=== PATIENT | female | born 1950 | race Caucasian/White ===

== ENCOUNTER 2024-03-11 13:32 | Observation (INO) | payer BC, OTHER ==
[2024-03-11 13:47] VITALS: BMI 20.5
[2024-03-11] MEDS ORDERED: ACETAMINOPHEN INJECTION 100 ML IVPB ONE (14:52)
[2024-03-11] MEDS ORDERED: MAG HYDROX/AL HYDROX/SIMETH 30 ML UNIT-DOSE CUP ONE (14:52)
[2024-03-11] MEDS ORDERED: METOCLOPRAMIDE HCL INJECTION 10 MG/2 ML VIAL ONE (14:52)
[2024-03-11] MEDS ORDERED: MECLIZINE HCL 25 MG TABLET (FP) ONE ×2 (14:52→18:27)
[2024-03-11] MEDS ORDERED: FAMOTIDINE 20 MG/50 ML IVPB 20 MG/50 ML MG IVPB ONE (14:53)
[2024-03-11] MEDS: FAMOTIDINE 20 MG/50 ML IVPB 20 MG/50 ML MG IVPB ONE (15:20)
[2024-03-11 15:21] LABS: BASO % 0.6 % (0-2.0); EOS % 0.1 % (0-4.5); HEMATOCRIT 37.8 % (32.4-45.2); HEMOGLOBIN 12.8 GM/dL (10.7-15.3); LYMPH % 6.9 % (8-40); MCH 31.1 pg (25.7-33.7); MEAN CELL VOLUME 91.3 fl (80-96); MEAN PLT VOLUME 7.4 fl (7.5-11.1); MONO % 3.5 % (3.8-10.2); NEUT % 88.9 % (42.8-82.8); PLATELET COUNT 258 10^3/uL (134-434); RBC 4.13 M/mm3 (3.60-5.2); WHITE BLOOD COUNT 10.6 K/mm3 (4.0-10.0)
[2024-03-11 15:30] LABS: INR 0.99 (0.83-1.09); PROTHROMBIN TIME (PATIENT) 11.2 SEC (9.7-13.0)
[2024-03-11] MEDS: ACETAMINOPHEN 1000 MG/100 ML BAG IVPB ONE (15:30)
[2024-03-11 15:33] LABS: ACTIVATED PTT 29.3 SECONDS (25.2-36.5)
[2024-03-11] MEDS: MECLIZINE HCL 25 MG TABLET (FP) PO ONE (15:40)
[2024-03-11] MEDS: MAG HYDROX/AL HYDROX/SIMETH 30 ML UNIT-DOSE CUP PO ONE (16:09)
[2024-03-11] MEDS: LACTATED RINGERS SOLUTION 1000 ML INFUS.BAG IV ONE (16:11)
[2024-03-11] MEDS: METOCLOPRAMIDE HCL INJECTION 10 MG/2 ML VIAL IVPUSH ONE (16:11)
[2024-03-11 16:46] LABS: CALCIUM 10.1 mg/dL (8.5-10.1)
[2024-03-11 16:47] LABS: ALBUMIN 3.9 g/dl (3.4-5.0); BLOOD UREA NITROGEN 12.8 mg/dL (7-18); MAGNESIUM 2.1 mg/dL (1.8-2.4)
[2024-03-11 16:50] LABS: CREATININE 0.7 mg/dL (0.55-1.3)
[2024-03-11 16:52] LABS: BILIRUBIN,TOTAL 0.5 mg/dL (0.2-1)
[2024-03-11] MEDS ORDERED: MECLIZINE HCL 25 MG TABLET (FP) PO ONE (18:06)
[2024-03-11 18:28] LABS: PH,URINE 5.5 (5.0-8.0); URINE APPEARANCE CLEAR; URINE BILIRUBIN NEGATIVE (NEGATIVE); URINE COLOR YELLOW; URINE GLUCOSE (UA) NEGATIVE (NEGATIVE); URINE KETONE NEGATIVE (NEGATIVE); URINE LEUK ESTERASE NEGATIVE (NEGATIVE); URINE NITRITE NEGATIVE (NEGATIVE); URINE PROTEIN NEGATIVE (NEGATIVE); URINE UROBILINOGEN 0.2 mg/dL (0.2-1.0)
[2024-03-11] MEDS: LORazepam 2 MG/ML SDV VIAL IVPUSH ONE (20:01)
[2024-03-11] MEDS ORDERED: ASPIRIN 81 MG CHEWABLE TABLETS ONE (20:03)
[2024-03-11] MEDS: ASPIRIN 81 MG CHEWABLE TABLETS PO ONE (20:11)
[2024-03-11] MEDS ORDERED: MECLIZINE HCL 25 MG TABLET (FP) PO PRN (21:06)
[2024-03-11] MEDS ORDERED: ATORVASTATIN CA 80 MG TABLET (FP) ONE (21:41)
[2024-03-11 21:42] LABS: POTASSIUM 4.6 mmol/L (3.5-5.1)
[2024-03-11 21:45] LABS: MAGNESIUM 1.8 mg/dL (1.8-2.4)
[2024-03-11 21:46] LABS: CALCIUM 8.8 mg/dL (8.5-10.1)
[2024-03-11 21:47] LABS: PHOSPHOROUS 3.5 mg/dL (2.5-4.9)
[2024-03-11 21:48] LABS: CREATININE 0.7 mg/dL (0.55-1.3)
[2024-03-11] MEDS: ATORVASTATIN CA 80 MG TABLET (FP) PO SCH (23:00)
[2024-03-12 08:13] LABS: BASO % 0.3 % (0-2.0); EOS % 2.1 % (0-4.5); HEMOGLOBIN 11.7 GM/dL (10.7-15.3); LYMPH % 24.2 % (8-40); MCH 31.4 pg (25.7-33.7); MCHC 34.4 g/dl (32.0-36.0); MEAN CELL VOLUME 91.2 fl (80-96); MEAN PLT VOLUME 7.2 fl (7.5-11.1); MONO % 7.3 % (3.8-10.2); NEUT % 66.1 % (42.8-82.8); PLATELET COUNT 222 10^3/uL (134-434); RBC 3.73 M/mm3 (3.60-5.2); RDW 13.1 % (11.6-15.6); WHITE BLOOD COUNT 6.7 K/mm3 (4.0-10.0)
[2024-03-12 08:22] LABS: POTASSIUM 4.2 mmol/L (3.5-5.1)
[2024-03-12 08:29] LABS: CALCIUM 8.9 mg/dL (8.5-10.1)
[2024-03-12 08:30] LABS: BLOOD UREA NITROGEN 9.2 mg/dL (7-18)
[2024-03-12 08:32] LABS: CREATININE 0.7 mg/dL (0.55-1.3)
[2024-03-12] MEDS ORDERED: ASPIRIN 81 MG CHEWABLE TABLETS PO SCH (10:00)
[2024-03-12] MEDS ORDERED: [UNRECOGNIZED DRUG - REMARK] OU SCH (10:00)
[2024-03-12] MEDS ORDERED: ALBUTEROL SO4 HFA INHALER IH PRN (10:48)
[2024-03-12] MEDS: ASPIRIN COATED 81 MG TABLET.EC PO SCH (10:57)
[2024-03-12] MEDS: THYROID 60 MG TABLET PO SCH (10:58)
[2024-03-12] MEDS: ENOXAPARIN NA (PORCINE) 40 MG/0.4 ML DISP.SYRIN SQ SCH (10:58)
[2024-03-12] MEDS: SPIRONOLACTONE 25 MG TABLET PO SCH (10:58)
[2024-03-12] MEDS ORDERED: THYROID 30 MG TABLET PO ONE (12:00)
[2024-03-12] MEDS ORDERED: THYROID 60 MG TABLET PO ONE (12:00)
[2024-03-12] MEDS: THYROID 15 MG TABLET PO ONE (14:44)
[2024-03-12 16:50] VITALS: BP 108/63; PULSE 64; RESP 18; TEMP 97.9
[2024-03-13] MEDS ORDERED: [UNRECOGNIZED DRUG - OTHER] PO SCH (10:00)
[2024-03-13] MEDS ORDERED: THYROID 60 MG PO SCH (10:00)
[2024-03-13] MEDS ORDERED: THYROID 60 MG TABLET PO SCH (10:00)
== END 2024-03-12 18:17 | disposition home or self-care (01) ==
LOC: JER 13:32 → JERBED 18:45
PROVIDERS: ADMIT Internal Medicine; ATTEND Internal Medicine
PROC: 3E033NZ Introduction of Analgesics, Hypnotics, Sedatives into Peripheral Vein, Percutaneous Approach (ICD-10-PCS; principal; 2024-03-11)
PROC: 3E033GC Introduction of Other Therapeutic Substance into Peripheral Vein, Percutaneous Approach (ICD-10-PCS; 2024-03-11)
PROC: 3E0337Z Introduction of Electrolytic and Water Balance Substance into Peripheral Vein, Percutaneous Approach (ICD-10-PCS; 2024-03-11)
PROC: 3E013GC Introduction of Other Therapeutic Substance into Subcutaneous Tissue, Percutaneous Approach (ICD-10-PCS; 2024-03-11)
DX: R42 Dizziness and giddiness (principal); R11.2 Nausea with vomiting, unspecified; R27.0 Ataxia, unspecified; J44.9 Chronic obstructive pulmonary disease, unspecified; Z85.51 Personal history of malignant neoplasm of bladder; Z88.0 Allergy status to penicillin; Z88.8 Allergy status to other drugs, medicaments and biological substances
CPT/HCPCS: 36415; 70450-TC; 70551-TC; 71045-TC-FY; 74177-TC; 76705-TC; 80048; 80053; 80061; 81003; 83036; 83690; 83735; 84100; 84439; 84443; 84484; 85025; 85610; 85730; 87077; 87086; 93005; 93010; 93306-TC; 93880-TC; 99285-25; G0378; J0131; Q9967